=== PATIENT | male | born 2000 | race Native Hawaiian/Other Pacific Islander ===

== ENCOUNTER 2018-07-03 11:59 | Emergency (ER) | payer OTHER ==
[~2018-07-03] VITALS: Ht 180.3 cm; Wt 90.7 kg
[2018-07-03 12:07] VITALS: TEMP 97.9
[2018-07-03 14:51] VITALS: BP 127/62
== END 2018-07-03 14:57 | disposition short-term general hospital (02) ==
LOC: ED 11:59
DX: T18.128A Food in esophagus causing other injury, initial encounter (principal); K22.2 Esophageal obstruction
CPT/HCPCS: 99283; J1610; J2405

== ENCOUNTER 2020-01-27 20:17 | Emergency (ER) | payer OTHER ==
[~2020-01-27] VITALS: Ht 180.3 cm; Wt 93.0 kg
[2020-01-27 20:48] LABS: PLATELET COUNT 280 K/uL (142-355)
[2020-01-27 20:56] LABS: POTASSIUM 3.5 mmol/L (3.6-5.2)
[2020-01-27 21:38] VITALS: BP 138/72; TEMP 98.5
== END 2020-01-27 21:38 | disposition home or self-care (01) ==
LOC: ED 20:17
PROVIDERS: Hospitalist
DX: T17.828A Food in other parts of respiratory tract causing other injury, initial encounter (principal); K20.90 Esophagitis, unspecified without bleeding
CPT/HCPCS: 80053; 85027; 96374; 96375; 99284; J1610; J2765

== ENCOUNTER 2021-11-07 12:30 | Emergency (ER) | payer OTHER ==
[~2021-11-07] VITALS: Ht 180.3 cm; Wt 99.8 kg
[2021-11-07 12:35] VITALS: BP 150/99; TEMP 98.4
== END 2021-11-07 15:50 | disposition short-term general hospital (02) ==
LOC: ED 12:30
DX: T18.128A Food in esophagus causing other injury, initial encounter (principal); X58.XXXA Exposure to other specified factors, initial encounter; Y92.89 Other specified places as the place of occurrence of the external cause
CPT/HCPCS: 36415; 96365; 99284; J1610